=== PATIENT | female | born 2000 | race Caucasian/White ===

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

== ENCOUNTER → 2021-07-12 | Outpatient (CLI) | payer BC ==
[~2021-07-12] VITALS: Ht 162.6 cm; Wt 46.3 kg
[~2021-07-12] MED LIST: NORG1TAB15 PO; PANT40TA2 PO
== END ==
LOC: PREOP 11:09
PROVIDERS: ATTEND Surgery
DX: Z01.818 Encounter for other preprocedural examination (principal)

== ENCOUNTER 2021-07-13 11:39 | Day surgery (SDC) | payer BC ==
[2021-07-13] VITALS (7 sets, daily range): BP systolic 120–135; BP diastolic 67–101
[~2021-07-13] VITALS: Ht 162.6 cm; Wt 46.3 kg
[~2021-07-13 11:39] MED LIST changes: -PANT40TA2 PO
[2021-07-13] MEDS ORDERED: MIDAZOLAM 2 MG/2 ML (VERSED) VIAL ONE (12:08)
[2021-07-13] MEDS ORDERED: PROPOFOL INJECTION 50 ML IV ONE ×2 (12:08→13:55)
[2021-07-13] MEDS ORDERED: LACTATED RINGERS 1,000 ML IV STA (12:26)
[2021-07-13] MEDS ORDERED: LIDOCAINE JELLY 2% 6 ML SYRINGE MM PRN (12:30)
[2021-07-13] MEDS ORDERED: HURRICAINE EXT TUBE (BENZOCAINE) XX PRN (12:30)
[2021-07-13] MEDS ORDERED: PANT40TA2 PO (12:35)
--- NOTE | 2021-07-13 12:35 | Progress Note-Pre Operative ---
Pre-Operative Progress Note H&P Reviewed The H&P was reviewed, patient examined and no changes noted. Date Seen by Provider: Jul 13, 2021 Time Seen by Provider: 12:00 Date H&P Reviewed: Jul 13, 2021 Time H&P Reviewed: 12:00 Pre-Operative Diagnosis: wt loss, early satiety CHANCE MORENO MD Jul 13, 2021 12:34
--- NOTE | 2021-07-13 12:36 | Discharge Inst-Surgical ---
D/C Lap Instructions-KIDO New, Converted, or Re-Newed RX: RX on Chart Follow Up Appt in 2 weeks Activity as tolerated High Fiber Diet 25g or more per day Avoid Alcohol, Caffeine, Spicy Wisdom and Acid foods. Drink 64 fluid oz or more of fluids per day. Symptoms to Report: Fever over 101 degree F, Nausea/Vomiting If any problems/questions: Contact your physician or go to Emergency Room CHANCE MORENO MD Jul 13, 2021 12:36
[2021-07-13] MEDS ORDERED: ONDANSETRON 4 MG/2 ML (SDV) Z0FRAN IVP PRN (12:45)
[2021-07-13] MEDS ORDERED: ONDANSETRON 4 MG (ZOFRAN) ORAL DISSOLVE TAB PO PRN (12:45)
--- NOTE | 2021-07-13 14:13 | Anesthesia-General Post-Op ---
MAC Patient Condition Mental Status/LOC: Same as Preop Cardiovascular: Satisfactory Nausea/Vomiting: Absent Respiratory: Satisfactory Pain: Controlled Complications: Absent Post Op Complications Complications None Follow Up Care/Instructions Patient Instructions None needed. Anesthesiology Discharge Order Discharge Order Patient is doing well, no complaints, stable vital signs, no apparent adverse anesthesia problems. No complications reported per nursing. SYEDA LEZAMA CRNA Jul 13, 2021 14:13
--- NOTE | 2021-07-13 14:22 | Progress Note-Post Operative ---
Post-Operative Progess Note Surgeon (s)/Auricular Acupuncturist (s) Surgeon CHANCE MORENO MD Auricular Acupuncturist: none Pre-Operative Diagnosis wt loss, early satiety, diarrhea Post-Operative Diagnosis reflux esophagitis(stage 2), small HH(2cm), moderate gastritis. normal colon and rectum. Procedure & Operative Findings Date of Procedure 07/13/21 Procedure Performed/Findings EGD with bx. colonoscopy. Anesthesia Type mac Estimated Blood Loss Estimated blood loss (mL): minimal Specimens/Packing Specimens Removed ge jxn, antrum CHANCE MORENO MD Jul 13, 2021 14:22
--- NOTE | 2021-07-13 18:52 | OPERATIVE REPORT ---
DATE OF SERVICE: 07/13/2021 ATTENDING PRIMARY CARE PHYSICIAN: Axel Purcell MD PREOPERATIVE DIAGNOSES: Weight loss, diarrhea. POSTOPERATIVE DIAGNOSES: Reflux esophagitis stage II, small hiatal hernia 2 cm in size, moderate gastritis, mild chronic stage I external and internal hemorrhoids. PROCEDURE: EGD with biopsy, colonoscopy. SURGEON: Chance Moreno MD. ANESTHESIA: Monitored anesthesia care. ESTIMATED BLOOD LOSS: Minimal. FINDINGS: Reflux esophagitis stage II, small hiatal hernia 2 cm in size, moderate gastritis, mild chronic stage I external and internal hemorrhoids. DISPOSITION: The patient tolerated the procedure well. INDICATIONS: The patient is a 21-year-old female referred over to us for persistent diarrhea and weight loss. She states that she has had gastrointestinal issues even since childhood. She has had previous colonoscopies at [facility] and found to be normal. The last one was 04/2020. She states in the past several months she has lost approximately 20 pounds unintentionally. She states that every morning, she has diarrhea and she does feel hungry; however, after starting to eat food she feels early satiety. She does report some mild nausea; however, no vomiting. She also does have some crampy abdominal pain on an intermittent basis. DESCRIPTION OF PROCEDURE: The patient was brought to the endoscopy suite, laid in the left lateral decubitus position. After adequate IV pain and sedative medications and monitored anesthesia care, the mouthpiece was applied. The endoscope was then placed in the mouth, visualizing the pharynx and hypopharyngeal region. Vocal cords, epiglottis and vallecula identified and appeared to be normal. Endoscope was then gently intubated. Esophageal opening and esophagus insufflated. The endoscope was then advanced to the first, second, third portion of esophagus at the level of the GE junction, a reflux esophagitis stage II identified. No ulcers or strictures identified. A biopsy was taken with forceps with visualization of good hemostasis. The endoscope was then advanced into the stomach and endoscope retroflexed, visualizing a small hiatal hernia approximately 2 cm in size. There was a moderate severity gastritis; however, no formal ulcerations, polyps, or any neoplasms. A biopsy was taken of the antrum to rule out H. pylori with visualization of good hemostasis. The endoscope was then advanced to the pylorus and the first and second portion of the duodenum, which appeared normal with no distal obstructions nor any signs of any food allergies. The endoscope was then slowly withdrawn while taking a second look and suctioning of residual air with no additional findings. We then proceeded with a digital rectal examination, which revealed mild chronic stage I external and internal hemorrhoids, not actively edematous nor inflamed and no bleeding. Normal sphincter tone was felt and there were no palpable masses. The endoscope was then intubated and anus and rectum gently insufflated. The endoscope was then advanced through the valves of Harding of the rectum with no polyps or any neoplasms identified. Through the sigmoid colon, no diverticulosis identified. The endoscope was then advanced to the remainder of the descending, transverse and ascending colon to the cecum. These segments were normal. No polyps or any neoplasms identified. There was also no mucosal inflammatory changes. The endoscope was then slowly withdrawn while taking a second look and suctioning of residual air with no additional findings. The patient tolerated the procedure well. At this time, we feel that there is a component of gastritis and reflux esophagitis, which may be contributing to her symptoms and we will start her on the necessary lifestyle and diet accommodation including small and more frequent meals, avoidance of eating at night as well as head elevation while lying supine. She also needs to avoid alcohol, nicotine products as well as caffeinated beverages, energy drinks as well as spicy, greasy and acidic foods. We will also recommend that she add a fiber supplement in her diet on a regular basis, which should equal or exceed 25 grams daily to promote soft stools on a daily basis, which are not liquid diarrhea; however, not formed as well and should be a soft consistency at all times. There may also be a component of her gallbladder causing her symptomatology and we will proceed with an ultrasound and if this does not show any abnormalities, then proceed with a HIDA scan with an ejection fraction. Job ID: [id number] DocumentID: [id number] Dictated Date: 07/13/2021 14:16:16 Data Designer Date: 07/13/2021 18:51:19 Dictated By: CHANCE MORENO MD
== END 2021-07-13 15:10 | disposition home or self-care (01) ==
LOC: ENDO 11:39
PROVIDERS: ATTEND Surgery
DX: K21.00 Gastro-esophageal reflux disease with esophagitis, without bleeding (principal); K29.50 Unspecified chronic gastritis without bleeding; K64.0 First degree hemorrhoids; K44.9 Diaphragmatic hernia without obstruction or gangrene; R19.7 Diarrhea, unspecified; R63.4 Abnormal weight loss; Z79.899 Other long term (current) drug therapy; Z79.3 Long term (current) use of hormonal contraceptives; F17.290 Nicotine dependence, other tobacco product, uncomplicated; Z20.822 Contact with and (suspected) exposure to COVID-19
CPT/HCPCS: 84703; 87636

== ENCOUNTER → 2021-07-22 | Outpatient (CLI) | payer BC ==
[~2021-07-22] MED LIST changes: +PANT40TA2 PO
--- NOTE | 2021-07-22 07:53 | Diagnostic Imaging Report ---
EXAMINATION: US Abdomen limited. TECHNIQUE: Multiple real-time grayscale images were obtained over the right upper quadrant in various projections. HISTORY: NAUSEA COMPARISON: None available. FINDINGS: Pancreas: The visualized portions of the pancreas are normal. Liver: The liver is normal in echogenicity and contour. No focal lesions are seen. The portal vein is patent with hepatopetal flow. Gallbladder and biliary tree: Gallbladder is contracted. There is a small non-shadowing stone or tumefactive sludge seen within the gallbladder neck. No gallbladder wall thickening or pericholecystic fluid is seen. No sonographic Cardozo sign. There is no biliary ductal dilation. The common duct measures 0.4 cm. Right kidney: The right kidney is normal without hydronephrosis. Aorta and IVC: The visualized aorta and inferior vena cava are normal. Fluid: No ascites is seen. IMPRESSION: 1. Non-shadowing stone or tumefactive sludge seen within the gallbladder neck. No other ultrasound findings of acute cholecystitis. 2. Otherwise unremarkable abdominal ultrasound. Dictated by: Dictated on workstation # [id number]
== END ==
LOC: RAD 07:00
PROVIDERS: ATTEND Surgery
DX: R11.0 Nausea (principal); R10.11 Right upper quadrant pain; R63.4 Abnormal weight loss
CPT/HCPCS: 76705

== ENCOUNTER 2021-07-28 06:57 | Outpatient (CLI) | payer BC ==
[~2021-07-28] VITALS: Ht 160 cm; Wt 47.7 kg
[2021-07-28] MEDS ORDERED: LORA10TA76 PO (13:33)
[2021-07-28] MEDS ORDERED: LEVO1TAB PO (13:33)
== END 2021-07-28 13:55 | disposition home or self-care (01) ==
LOC: PREOP 06:57
PROVIDERS: ATTEND Surgery
DX: Z01.818 Encounter for other preprocedural examination (principal)

== ENCOUNTER 2021-08-04 08:31 | Day surgery (SDC) | payer BC ==
--- NOTE | 2021-08-02 12:30 | HISTORY AND PHYSICAL ---
DATE OF SERVICE: PROCEDURE DATE: 08/04/2021. ATTENDING PRIMARY CARE PHYSICIAN: Dr. Axel Purcell. HISTORY: The patient is a 21-year-old female who was referred over to us for persistent diarrhea and weight loss. She states that she has had gastrointestinal issues since childhood. She has had previous colonoscopies at [facility] and was found to be normal. The last one was done in 04/2020. She states that over the past several months she has lost approximately 20 pounds unintentionally. She states that every morning she has diarrhea and does feel hungry; however, after starting to eat, she does feel early satiety. She does report some mild nausea; however, no vomiting. She also does have some crampy abdominal pain on an intermittent basis. On 07/13/2021, she underwent an EGD with biopsy and colonoscopy. Findings were reflux esophagitis stage II, small hiatal hernia that was 2 cm in size, moderate gastritis, and mild chronic stage I external and internal hemorrhoids. She then underwent a gallbladder ultrasound, which did show a non-shadowing stone or sludge within the gallbladder consistent with a chronic calculous cholecystitis. It was then decided that based on her symptoms to proceed with a laparoscopic cholecystectomy. PAST MEDICAL HISTORY: None. PAST SURGICAL HISTORY: EGD and colonoscopies. ALLERGIES: No known drug allergies. MEDICATIONS: Tri-Previfem. FAMILY HISTORY: Mother, hypertension. Grandparents have diabetes, myocardial infarction, hypertension. SOCIAL HISTORY: Negative for smoke. Negative for alcohol. VITAL SIGNS: Blood pressure is 122/80. Current weight 102 pounds at 5 feet 4 inches. REVIEW OF SYSTEMS: This is a well-nourished female, in no acute distress. She is not experiencing any shortness of breath or difficulty breathing. No chest pain, palpitations or diaphoresis. She does report episodes of nausea, but no vomiting. She does report diarrhea, no constipation. She does report intermittent episodes of crampy abdominal pain. No red blood per rectum. No dark tarry stools. No fever or chills. No recent inadvertent weight loss. She does report a pound weight loss. This is unintentional over the last several months. All other review of systems negative. PHYSICAL EXAMINATION: CHEST: Clear. Good breath sounds bilaterally. HEART: Regular, no murmurs. EXTREMITIES: No lower extremity edema. Negative Homans sign. HEENT: No scleral icterus. NECK: No cervical lymphadenopathy. ABDOMEN: Soft, nondistended. There is some mild tenderness in the right upper abdominal quadrant upon palpation. No palpable masses. No organomegaly. SKIN: Warm, dry and pink. NEUROLOGIC: Awake, alert and oriented x3. ASSESSMENT AND PLAN: A 21-year-old female with symptomatic chronic calculous cholecystitis. At this time, we will recommend proceeding with a laparoscopic cholecystectomy. The risks and benefits of the procedure as well as the procedure and home care instructions were explained to the patient. The patient verbalized understanding of instructions and agrees to proceed as planned. Job ID: [id number] DocumentID: [id number] Dictated Date: 08/02/2021 10:28:37 Ironing Pleater Date: 08/02/2021 12:29:35 Dictated By: BRENNAN LUNA APRN
[2021-08-04] VITALS (11 sets, daily range): BP systolic 98–146; BP diastolic 71–91
[~2021-08-04] VITALS: Ht 160 cm; Wt 47.7 kg
[~2021-08-04 08:31] MED LIST changes: +LEVO1TAB PO; +LORA10TA76 PO
--- NOTE | 2021-08-04 08:51 | Progress Note-Pre Operative ---
Pre-Operative Progress Note H&P Reviewed The H&P was reviewed, patient examined and no changes noted. Date Seen by Provider: Aug 04, 2021 Time Seen by Provider: 08:50 Date H&P Reviewed: Aug 04, 2021 Time H&P Reviewed: 08:45 Pre-Operative Diagnosis: Chronic calculous cholecystitis BRENNAN LUNA APRN Aug 04, 2021 08:51
[2021-08-04] MEDS ORDERED: HYDR-3817 PO (08:53)
--- NOTE | 2021-08-04 08:53 | Discharge Inst-Surgical ---
D/C Lap Instructions-KIDO Reconcile Patient Problems Problems Reviewed?: Yes New, Converted, or Re-Newed RX: RX on Chart Follow Up Appt in 2 weeks Activity as tolerated No driving for 24 hours No driving while on pain medications Incentive Spirometry use every 2 hours while awake Regular Diet Symptoms to Report: Fever over 101 degree F, Nausea/Vomiting Infection Signs and Symptoms to report: Increased redness, Foul odor of wound, Increased drainage Bathing instructions: May shower Operative Area Clean/Dry; Keep incision clean/dry If any problems/questions: Contact your physician or go to Emergency Room BRENNAN LUNA APRN Aug 04, 2021 08:53
[2021-08-04] MEDS ORDERED: ceFAZolin INJECTION 1,000 MG in WATER (STERILE) FOR INJECTION 10 ML IV ONE (09:00)
[2021-08-04] MEDS ORDERED: ACETAMINOPHEN 325 MG TABLET PO PRN (09:00)
[2021-08-04] MEDS ORDERED: HYDROcodone/APAP 5 MG/325 MG (LORTAB) TAB PO ONE (09:00)
[2021-08-04] MEDS ORDERED: ONDANSETRON 4 MG/2 ML (SDV) Z0FRAN IVP PRN ×2 (09:00→11:30)
[2021-08-04] MEDS ORDERED: morphine INJ 10 MG/ML 1ML (SYR OR VIAL) IVP PRN (09:00)
[2021-08-04] MEDS ORDERED: LIDOCAINE PF 2% 5 ML (XYLOCAINE) VIAL ONE (09:02)
[2021-08-04] MEDS ORDERED: MIDAZOLAM 2 MG/2 ML (VERSED) VIAL ONE (09:02)
[2021-08-04] MEDS ORDERED: ONDANSETRON 4 MG/2 ML (SDV) Z0FRAN ONE (09:02)
[2021-08-04] MEDS ORDERED: fentaNYL INJ 100 MCG/2 ML AMP ONE (09:02)
[2021-08-04] MEDS ORDERED: proPOfol 200 MG/20 ML (DIPRIVAN) VIAL IV ONE (09:02)
[2021-08-04] MEDS ORDERED: ROCURONIUM 10 MG/ML 5 ML SYRINGE IV ONE (09:02)
[2021-08-04] MEDS ORDERED: SEVOFLURANE (ULTANE) 15 ML INHAL SOLN ONE ×2 (09:02→11:10)
[2021-08-04] MEDS ORDERED: LIDOCAINE/EPI 1%-1:200,000 (XYLOCAINE) 30 ML VIAL ONE (09:03)
[2021-08-04] MEDS: LACTATED RINGERS 1,000 ML IV PRN ×2 (09:15→11:32)
[2021-08-04] MEDS ORDERED: NEOSTIGMINE 3 MG/3 ML VIAL ONE (10:26)
[2021-08-04] MEDS ORDERED: GLYCOPYRROLATE 0.2 MG/ML (ROBINUL) 2 ML VIAL ONE (10:26)
[2021-08-04] MEDS ORDERED: HYDROmorphone 2 MG/ML VIAL (DILAUDID) ONE ×2 (10:41→11:51)
[2021-08-04] MEDS ORDERED: KETOROLAC 30 MG/ML VIAL ONE (11:10)
[2021-08-04] MEDS ORDERED: HYDROmorphone 2 MG/ML VIAL (DILAUDID) IV ONE (11:30)
--- NOTE | 2021-08-04 11:50 | Progress Note-Post Operative ---
Post-Operative Progess Note Surgeon (s)/Electric Vehicle Electrician (s) Surgeon CHANCE MORENO MD Electric Vehicle Electrician: none Pre-Operative Diagnosis Chronic calculous cholecystitis Post-Operative Diagnosis same Procedure & Operative Findings Date of Procedure 08/04/21 Procedure Performed/Findings laparoscopic cholecystectomy Anesthesia Type get Estimated Blood Loss Estimated blood loss (mL): minimal Specimens/Packing Specimens Removed gallbladder CHANCE MORENO MD Aug 04, 2021 11:50
--- NOTE | 2021-08-04 12:15 | Anesthesia-General Post-Op ---
General Patient Condition Mental Status/LOC: Same as Preop Cardiovascular: Satisfactory Nausea/Vomiting: Absent Respiratory: Satisfactory Pain: Controlled Complications: Absent Post Op Complications Complications None Follow Up Care/Instructions Patient Instructions None needed. Anesthesia/Patient Condition Patient Condition Patient is doing well, no complaints, stable vital signs, no apparent adverse anesthesia problems. No complications reported per nursing. D/C home per [facility] Criteria: Yes SYEDA LEZAMA CRNA Aug 04, 2021 12:15
[2021-08-04] MEDS ORDERED: HYDROcodone/APAP 5 MG/325 MG (LORTAB) TAB ONE (12:40)
--- NOTE | 2021-08-04 13:19 | OPERATIVE REPORT ---
DATE OF SERVICE: 08/04/2021 ATTENDING PRIMARY CARE PHYSICIAN: Dr. Charles Purcell. PREOPERATIVE DX: Chronic calculous cholecystitis. POSTOPERATIVE DX: same PROCEDURE: Laparoscopic cholecystectomy SURGEON: Tracey PIT SUPERVISOR: Breana DUDLEY ANESTHESIA: get. EBL: minimal DISPOSITION: patient tolerated procedure well. INDICATIONS FOR PROCEDURE: The patient is a 21-year-old female, who was initially referred over to us for persistent diarrhea and weight loss. She has had gastrointestinal issues since childhood. She did have previous colonoscopies, which were found to be normal. She states that over the past several months, she has unintentionally lost approximately 20 pounds. She reports that every morning, she has diarrhea and does feel hungry; however, after starting to eat, she feels early satiety as well as crampy abdominal pain. She underwent an EGD and colonoscopy on 07/13/2021, which did show reflux esophagitis stage II as well as a small hiatal hernia and a moderate gastritis. The colonoscopy was normal. She continued to have symptoms and underwent a gallbladder ultrasound, which did show gallstones consistent with a chronic calculous cholecystitis. DESCRIPTION OF PROCEDURE: The patient was brought to the operating room and laid supine on the table. After adequate IV pain and sedative medications and general endotracheal intubation, the abdomen was prepped and draped in a standard surgical fashion. A 0.5% Marcaine with epinephrine was used to anesthetize the overlying skin in the left upper abdominal quadrant and a transverse skin incision made using a 15 blade. An 0 silk suture was applied to the medial aspect of the incision for retraction and a Veress needle inserted with a low opening pressure of 0 mmHg and the abdomen was then insufflated to 15 mmHg pressure. The Veress needle was removed and a 5 mm XL trocar placed followed by a 5 mm 45-degree angle laparoscope visualizing the peritoneal cavity. A four-quadrant abdominal exploration was performed. There was a slightly distended gallbladder and no gallbladder wall thickening. Under direct visualization, we then proceeded to place a supraumbilical 10 mm port after the skin and peritoneal lining were anesthetized using 0.5% Marcaine with epinephrine and a transverse skin incision was made using a 15 blade. In a similar manner, a right upper abdominal quadrant 5 mm port was placed. The patient was then placed in a reverse Trendelenburg position as well as plane right side up, left side down and the fundus of the gallbladder retracted anteriorly and superiorly. The hepatoduodenal ligament was then opened using a blunt dissection as well as electrocautery using the hook instrument as well as a [place] dissector. The entire critical view of safety was identified including the triangle of Calot as well as the cystic duct and artery as the only two structures going into the gallbladder as well as the cystic plate behind the proximal gallbladder. A timeout was then taken and the cystic duct and artery were then clipped proximally, distally and cut with EndoShears. The gallbladder was then dissected off the liver bed using electrocautery and hook instrument with visualization of good hemostasis as well as no leaking ducts of Luschka. The gallbladder was removed through the 10 mm port site using an EndoCatch bag. The 10 mm port site fascia and peritoneum were then closed under direct visualization using a Petros-Leslie device and 0 Vicryl suture. The abdomen was desufflated and the remaining ports were removed. All skin incisions were closed using 4-0 Monocryl running subcuticular sutures. Wounds were then cleaned and covered with Dermabond. The patient tolerated the procedure well. We will start IV normal pain medication as well as a clear liquid diet. Once she is tolerating clears, has a good pain control with oral pain medications, and ambulating well, we will discharge her home, where she will be instructed to do no heavy lifting or exertion for the next two weeks. Job ID: [id number] DocumentID: [id number] Dictated Date: 08/04/2021 11:54:46 Veneer Measurer Date: 08/04/2021 13:19:26 Dictated By: CHANCE MORENO MD [facility]
== END 2021-08-04 13:35 | disposition home or self-care (01) ==
LOC: SDC 08:31
PROVIDERS: ATTEND Surgery
DX: K80.10 Calculus of gallbladder with chronic cholecystitis without obstruction (principal); K21.00 Gastro-esophageal reflux disease with esophagitis, without bleeding; K44.9 Diaphragmatic hernia without obstruction or gangrene; K29.70 Gastritis, unspecified, without bleeding; F17.290 Nicotine dependence, other tobacco product, uncomplicated; K64.0 First degree hemorrhoids; Z79.3 Long term (current) use of hormonal contraceptives; Z11.2 Encounter for screening for other bacterial diseases
CPT/HCPCS: 84703; 87081

== ENCOUNTER → 2021-08-10 | Outpatient (CLI) | payer BC ==
[~2021-08-10] MED LIST changes: +HYDR-3817 PO
[2021-08-10 11:27] LABS: HEMATOCRIT 45 % (35-52); HEMOGLOBIN 14.7 g/dL (11.5-16.0); MEAN CORPUSCULAR HEMOGLOBIN 29 pg (25-34); MEAN CORPUSCULAR HGB CONC 33 g/dL (32-36); MEAN CORPUSCULAR VOLUME 89 fL (80-99); MEAN PLATELET VOLUME 9.3 fL (9.0-12.2); PLATELET COUNT 446 10^3/uL (130-400); WHITE BLOOD COUNT 8.6 10^3/uL (4.3-11.0)
[2021-08-10 11:44] LABS: ALANINE AMINOTRANSFERASE 46 U/L (0-55); ALBUMIN 4.6 GM/DL (3.2-4.5); ALKALINE PHOSPHATASE 74 U/L (40-136); BILIRUBIN,TOTAL 0.5 MG/DL (0.1-1.0); BUN/CREATININE RATIO 8; CALCIUM 10.4 MG/DL (8.5-10.1); CARBON DIOXIDE 23 MMOL/L (21-32); CHLORIDE 102 MMOL/L (98-107); CREATININE SERUM 0.85 MG/DL (0.60-1.30); GFR ESTIMATED 84; GLUCOSE 96 MG/DL (70-105); POTASSIUM 4.3 MMOL/L (3.6-5.0); SODIUM 139 MMOL/L (135-145); TOTAL PROTEIN 8.6 GM/DL (6.4-8.2)
== END ==
LOC: LAB 10:57
PROVIDERS: ATTEND Surgery
DX: R11.2 Nausea with vomiting, unspecified (principal); R53.83 Other fatigue
CPT/HCPCS: 36415; 80053; 85027

== ENCOUNTER → 2021-08-11 | Outpatient (CLI) | payer BC ==
[2021-08-11 12:22] LABS: CLARITY,URINE CLEAR; COLOR,URINE YELLOW; GLUCOSE, URINE (UA) NEGATIVE (NEGATIVE); KETONES,URINE 1+ (NEGATIVE); LEUKOCYTE ESTERASE ,URINE NEGATIVE (NEGATIVE); NITRITE,URINE NEGATIVE (NEGATIVE); PROTEIN,URINE TRACE (NEGATIVE)
--- NOTE | 2021-08-11 12:36 | Diagnostic Imaging Report ---
INDICATION: UTI COMPARISON: None FINDINGS: Frontal and lateral views of the chest demonstrate normal heart size and pulmonary vascularity. The lungs are clear. There are no signs of infiltrate, pleural effusions or pneumothoraces. The visualized osseous structures show no acute abnormalities. IMPRESSION: 1. No acute process. No signs of infiltrates, effusions or pneumothoraces. Dictated by: Dictated on workstation # [id number]
[2021-08-11 12:37] LABS: BACTERIA,URINE NEGATIVE /HPF; BILIRUBIN,URINE 2+ (NEGATIVE); RBC,URINE RARE /HPF; WBC,URINE RARE /HPF
== END ==
LOC: LAB 11:51
PROVIDERS: ATTEND Surgery
DX: N39.0 Urinary tract infection, site not specified (principal)
CPT/HCPCS: 71046; 81000

== ENCOUNTER → 2021-08-12 | Outpatient (CLI) | payer BC ==
[2021-08-12 10:08] LABS: HEMATOCRIT 46 % (35-52); HEMOGLOBIN 14.8 g/dL (11.5-16.0); MEAN CORPUSCULAR HEMOGLOBIN 29 pg (25-34); MEAN CORPUSCULAR HGB CONC 32 g/dL (32-36); MEAN CORPUSCULAR VOLUME 89 fL (80-99); MEAN PLATELET VOLUME 9.6 fL (9.0-12.2); PLATELET COUNT 435 10^3/uL (130-400); WHITE BLOOD COUNT 9.5 10^3/uL (4.3-11.0)
[2021-08-12 10:12] LABS: ALBUMIN 4.7 GM/DL (3.2-4.5)
[2021-08-12 10:13] LABS: CHLORIDE 101 MMOL/L (98-107); POTASSIUM 3.8 MMOL/L (3.6-5.0); SODIUM 138 MMOL/L (135-145)
[2021-08-12 10:15] LABS: GLUCOSE 87 MG/DL (70-105); TOTAL PROTEIN 8.4 GM/DL (6.4-8.2)
[2021-08-12 10:16] LABS: CARBON DIOXIDE 22 MMOL/L (21-32)
--- NOTE | 2021-08-12 10:16 | Diagnostic Imaging Report ---
EXAMINATION: US Abdomen complete. TECHNIQUE: Multiple real-time grayscale images were obtained over the right upper quadrant in various projections. HISTORY: ABD PAIN, FEVER COMPARISON: None available. FINDINGS: Pancreas: The visualized portions of the pancreas are normal. Liver: The liver is normal in echogenicity and contour. No focal lesions are seen. The portal vein is patent with hepatopetal flow. Gallbladder and biliary tree: The gallbladder is surgically absent. There is no biliary ductal dilation. The common duct measures 0.4 cm. Kidneys: The right kidney is normal without hydronephrosis. The left kidney is normal without hydronephrosis. Spleen: The spleen is normal. Aorta and IVC: The visualized aorta and inferior vena cava are normal. Fluid: No ascites is seen. IMPRESSION: 1. Unremarkable abdominal ultrasound. Dictated by: Dictated on workstation # [id number]
[2021-08-12 10:17] LABS: BILIRUBIN,TOTAL 0.5 MG/DL (0.1-1.0)
[2021-08-12 10:18] LABS: ALKALINE PHOSPHATASE 71 U/L (40-136)
[2021-08-12 10:19] LABS: GFR ESTIMATED 63
[2021-08-12 10:20] LABS: BUN/CREATININE RATIO 8
[2021-08-12 10:22] LABS: ALANINE AMINOTRANSFERASE 48 U/L (0-55)
== END ==
LOC: RAD 09:30
PROVIDERS: ATTEND Surgery
DX: R50.9 Fever, unspecified (principal); R10.9 Unspecified abdominal pain; Z90.49 Acquired absence of other specified parts of digestive tract
CPT/HCPCS: 36415; 76700; 80053; 85027